=== PATIENT | male | born 1985 | race Caucasian/White ===

== ENCOUNTER 2017-10-24 19:27 | Emergency (ER) | payer OTHER ==
[~2017-10-24] VITALS: Ht 172.7 cm; Wt 88.9 kg
--- NOTE | 2017-10-24 19:37 | ED.ADGEN ---
Adult General Chief Complaint Chief Complaint " ... I ve had a fever...".. it been somewhat constant the past week or so.. I seen my doctor .. but did not see anything that was obviously causing the fevers..." HPI HPI Patient is a 32 year old male who presents with above hx and complaints of fever. Pt. Denies any history of immunosuppression, drug use or specific ill contacts or travel. Patient states fevers have been relatively constant and seemed to peak at night. No specific history of cough or productive sputum. Patient does have a family history of Hodgkin's lymphoma and lymphatic cancer. Patient normally follows with Dr. Child Review of Systems Review of Systems Constitutional: Hx of fevers Eyes: Denies change in visual acuity, redness, or eye pain [] HENT: Denies nasal congestion or sore throat [] Respiratory: Denies cough or shortness of breath [] Cardiovascular: No additional information not addressed in HPI [] GI: Denies abdominal pain, nausea, vomiting, bloody stools or diarrhea [] : Denies dysuria or hematuria [] Musculoskeletal: Denies back pain or joint pain [] Integument: Denies rash or skin lesions [] Neurologic: Denies headache, focal weakness or sensory changes [] Endocrine: Denies polyuria or polydipsia [] All other systems were reviewed and found to be within normal limits, except as documented in this note. Family History Family History Lymphatic Cancer, Hodgkin's lymphoma Current Medications Current Medications Current Medications Medications (Trade) Dose Ordered Sig/Sneha Start Time Stop Time Status Last Admin Dose Admin Acetaminophen (Tylenol) 1,000 mg 1X ONCE 10/24/17 21:15 10/24/17 21:36 DC 10/24/17 21:35 1,000 MG Info (Do NOT chart on this entry -- for MONITORING) 1 each PRN DAILY PRN 10/24/17 21:45 10/24/17 23:27 DC Iohexol (Omnipaque 300 Mg/ml) 75 ml 1X ONCE 10/24/17 21:45 10/24/17 21:46 DC 10/24/17 21:49 75 ML Lactated Ringer's 1,000 ml @ 1,000 mls/hr Q1H 10/24/17 19:44 10/24/17 20:43 DC 10/24/17 20:06 1,000 MLS/HR Allergies Allergies Allergies Coded Allergies Type Severity Reaction Last Updated Verified budesonide Allergy Unknown 10/24/17 Yes Physical Exam Physical Exam Constitutional: Well developed, well nourished, mild distress, non-toxic appearance. [] HENT: Normocephalic, atraumatic, bilateral external ears normal, oropharynx moist, no oral exudates, nose normal. []No dental abscesses appreciated Eyes: PERRLA, EOMI, conjunctiva normal, no discharge. [] Glasses Neck: Normal range of motion, no tenderness, supple, no stridor. [] Cardiovascular: Tachycardia Heart rate regular rhythm, no murmur [] Lungs & Thorax: Bilateral breath sounds clear to auscultation []few scattered wheezes. Abdomen: Bowel sounds normal, soft, no tenderness, no masses, no pulsatile masses. [] Skin: Warm, dry, no erythema, no rash. [] No adenopathy appreciated. Back: No tenderness, no CVA tenderness. [] Extremities: No tenderness, no cyanosis, no clubbing, ROM intact, no edema. [] Neurologic: Alert and oriented X 3, normal motor function, normal sensory function, no focal deficits noted. [] Psychologic: Affect anxious, judgement normal, mood normal. [] Current Patient Data Vital Signs Vital Signs Date Time Temp Pulse Resp B/P (MAP) Pulse Ox O2 Delivery O2 Flow Rate FiO2 10/24/17 23:10 98.8 99 20 128/80 (96) 95 Room Air Lab Results Laboratory Tests Test 10/24/17 19:55 10/24/17 20:16 White Blood Count 6.1 x10^3/uL (4.0-11.0) Red Blood Count 5.44 x10^6/uL (4.30-5.70) Hemoglobin 17.4 g/dL (13.0-17.5) Hematocrit 49.3 % (39.0-53.0) Mean Corpuscular Volume 91 fL (79-100) Mean Corpuscular Hemoglobin 32 pg (25-35) Mean Corpuscular Hemoglobin Concent 35 g/dL (31-37) Red Cell Distribution Width 12.6 % (11.5-14.5) Platelet Count 257 x10^3/uL (140-400) Neutrophils (%) (Auto) 37 % (31-73) Lymphocytes (%) (Auto) 52 % (24-48) H Monocytes (%) (Auto) 9 % (0-9) Eosinophils (%) (Auto) 1 % (0-3) Basophils (%) (Auto) 1 % (0-3) Neutrophils # (Auto) 2.3 x10^3uL (1.8-7.7) Lymphocytes # (Auto) 3.2 x10^3/uL (1.0-4.8) Monocytes # (Auto) 0.5 x10^3/uL (0.0-1.1) Eosinophils # (Auto) 0.1 x10^3/uL (0.0-0.7) Basophils # (Auto) 0.1 x10^3/uL (0.0-0.2) Prothrombin Time 10.0 SEC (9.4-11.4) Prothrombin Time INR 1.0 (0.9-1.1) PTT 29 SEC (23-33) Sodium Level 138 mmol/L (136-145) Potassium Level 3.4 mmol/L (3.5-5.1) L Chloride Level 102 mmol/L (98-107) Carbon Dioxide Level 28 mmol/L (21-32) Anion Gap 8 (6-14) Blood Urea Nitrogen 11 mg/dL (8-26) Creatinine 1.1 mg/dL (0.7-1.3) Estimated GFR (Cockcroft-Gault) 77.1 Glucose Level 117 mg/dL (70-99) H Calcium Level 8.7 mg/dL (8.5-10.1) Magnesium Level 1.8 mg/dL (1.8-2.4) Total Bilirubin 0.4 mg/dL (0.2-1.0) Direct Bilirubin 0.1 mg/dL (0.0-0.2) Aspartate Amino Transferase (AST) 54 U/L (15-37) H Alanine Aminotransferase (ALT) 100 U/L (16-63) H Alkaline Phosphatase 86 U/L (46-116) Creatine Kinase 91 U/L (39-308) Troponin I Quantitative < 0.017 ng/mL (0-0.055) Total Protein 7.6 g/dL (6.4-8.2) Albumin 3.3 g/dL (3.4-5.0) L Influenza Type A (Rapid) Negative (NEGATIVE) Influenza Type B (Rapid) Negative (NEGATIVE) Group A Streptococcus Rapid Negative (NEGATIVE) Urine Collection Type Unknown Urine Color Yellow Urine Clarity Clear Urine pH 7.0 Urine Specific [place] 1.020 Urine Protein Trace (NEG-TRACE) Urine Glucose (UA) Neg mg/dL (NEG) Urine Ketones (Stick) Neg mg/dL (NEG) Urine Blood Neg (NEG) Urine Nitrite Neg (NEG) Urine Bilirubin Neg (NEG) Urine Urobilinogen Dipstick 0.2 mg/dL (0.2 mg/dL) Urine Leukocyte Esterase Neg (NEG) Urine RBC 3-5 /HPF (0-2) Urine WBC Occ /HPF (0-4) Urine Squamous Epithelial Cells Few /LPF Urine Bacteria 0 /HPF (0-FEW) Urine Mucus Slight /LPF Urine Opiates Screen Neg (NEG) Urine Methadone Screen Neg (NEG) Urine Barbiturates Neg (NEG) Urine Phencyclidine Screen Neg (NEG) Urine Amphetamine/Methamphetamine Neg (NEG) Urine Benzodiazepines Screen Neg (NEG) Urine Cocaine Screen Neg (NEG) Urine Cannabinoids Screen Neg (NEG) Urine Ethyl Alcohol Neg (NEG) EKG EKG [] Radiology/Procedures Radiology/Procedures My interpretation of chest x-ray shows no acute cardiopulmonary findings. CT of chest shows no obvious pulmonary embolism. No marked pathology of abdomen.[] See formal report when available. Course & Med Decision Making Course & Med Decision Making Pertinent Labs and Imaging studies reviewed. (See chart for details). Follow- up labs and radiographic results with primary. Consider further evaluation of lymphocytosis. Patient lymphocytosis may be of a viral infection. Must follow up. Push fluids, take tylenol and ibuprofen for discomfort and fever. Push fluids. Push fruit juices. [] Final Impression Final Impression 1. Fever[]s 2. lymphocytosis 3. Elevated ALT and AST 4. Mild hypokalemia 5. Suspect viral syndrome Problems: Dragon Disclaimer Dragon Disclaimer This electronic medical record was generated, in whole or in part, using a voice recognition dictation system. EMRE VILLALTA MD Oct 24, 2017 19:37
[2017-10-24] MEDS ORDERED: IV RINGERS SOLUTION,LACTATED 1,000 ML IV SCH (19:44)
[2017-10-24 20:27] LABS: BASO # 0.1 x10^3/uL (0.0-0.2); BASO % 1 % (0-3); EOS # 0.1 x10^3/uL (0.0-0.7); EOS % 1 % (0-3); HEMATOCRIT 49.3 % (39.0-53.0); HEMOGLOBIN 17.4 g/dL (13.0-17.5); LYMPH # 3.2 x10^3/uL (1.0-4.8); LYMPH % 52 % (24-48); MEAN CORPUSCULAR HEMOGLOBIN 32 pg (25-35); MEAN CORPUSCULAR HGB CONC 35 g/dL (31-37); MEAN CORPUSCULAR VOLUME 91 fL (79-100); MONO # 0.5 x10^3/uL (0.0-1.1); MONO % 9 % (0-9); NEUT # 2.3 x10^3uL (1.8-7.7); NEUT % 37 % (31-73); PLATELET COUNT 257 x10^3/uL (140-400); RED BLOOD COUNT 5.44 x10^6/uL (4.30-5.70); RED CELL DISTRIBUTION WIDTH 12.6 % (11.5-14.5); WHITE BLOOD COUNT 6.1 x10^3/uL (4.0-11.0)
[2017-10-24 20:40] LABS: ALBUMIN 3.3 g/dL (3.4-5.0); CALCIUM 8.7 mg/dL (8.5-10.1); CREATININE 1.1 mg/dL (0.7-1.3); DIRECT BILIRUBIN 0.1 mg/dL (0.0-0.2); GFR 77.1; MAGNESIUM 1.8 mg/dL (1.8-2.4); POTASSIUM 3.4 mmol/L (3.5-5.1); TOTAL BILIRUBIN 0.4 mg/dL (0.2-1.0); TOTAL PROTEIN 7.6 g/dL (6.4-8.2)
[2017-10-24 20:47] LABS: INFLUENZA A PATIENT NEGATIVE (NEGATIVE); INFLUENZA B PATIENT NEGATIVE (NEGATIVE)
[2017-10-24 21:00] LABS: AMPHETAMINE/METHAMPHETAMINE NEG (NEG); BARBITURATES NEG (NEG); BENZODIAZEPINES NEG (NEG); CANNABINOIDS NEG (NEG); COCAINE NEG (NEG); METHADONE NEG (NEG); OPIATES NEG (NEG); PHENCYCLIDINE NEG (NEG)
[2017-10-24 21:01] LABS: BACTERIA,URINE 0 /HPF (0-FEW); BILIRUBIN,URINE NEG (NEG); CLARITY,URINE CLEAR; COLOR,URINE YELLOW; GLUCOSE,URINE NEG (NEG); NITRITE,URINE NEG (NEG); SQUAMOUS EPITHELIAL CELL,UR FEW /LPF; UROBILINOGEN,URINE 0.2 mg/dL (0.2 mg/dL); WBC,URINE OCC /HPF (0-4)
[2017-10-24] MEDS ORDERED: ACETAMINOPHEN 500 MG TABLET PO ONE (21:15)
[2017-10-24] MEDS ORDERED: CONTRAST GIVEN MC PRN (21:45)
[2017-10-24] MEDS ORDERED: IOHEXOL 300 MG/ML 75 ML VIAL. IV ONE (21:45)
--- NOTE | 2017-10-24 22:53 | RAD ---
CT arteriogram of the chest and abdomen. HISTORY: Fever, dyspnea, history of asthma CT arteriogram of the chest was done using 75 mL Omnipaque 300 contrast. Coronal MIP images were reconstructed. Three-dimensional reconstruction was made of the abdominal and thoracic aorta. Thyroid is homogeneous. There is no mediastinal adenopathy. There is no pleural effusion. There is mild dependent atelectasis in the lungs without other infiltrates. This study is negative for evidence of a pulmonary embolus. Origins of the great vessels are widely patent. Thoracic aorta is normal without an aneurysm or dissection. IMPRESSION: 1. Negative CT arteriogram of the chest. 2. Normal thoracic aorta without aneurysm or dissection. 3. No pulmonary embolus. End impression CT arteriogram of the abdomen. CT arteriogram the abdomen was performed. Coronal MIP images were reconstructed. Three-dimensional reconstructions were made in the aorta. Liver was normal in appearance. The gallbladder is contracted. Spleen is upper normal in size. Adrenal glands and pancreas are unremarkable unremarkable. There is no mass or hydronephrosis in the kidneys. There is no free air or bowel obstruction or ascites. Bowel pattern is normal. The celiac artery is somewhat prominent but patent without stenosis. Superior mesenteric artery and renal arteries are patent. There is no abdominal aortic aneurysm or dissection. Inferior mesenteric artery is patent. IMPRESSION: 1. No abdominal aortic aneurysm or dissection. 2. No acute finding noted in the abdomen. 3. Gallbladder is contracted but without calcified gallstones. PQRS Compliance Statement: One or more of the following individualized dose reduction techniques were utilized for this examination: 1. Automated exposure control 2. Adjustment of the mA and/or kV according to patient size 3. Use of iterative reconstruction technique Electronically signed by: Cabrera Loja MD (10/24/2017 10:50 PM) [id number]
[2017-10-24 23:10] VITALS: BP 128/80
--- NOTE | 2017-10-25 09:30 | RAD ---
PA and lateral chest x-rays History: Fever and dizziness. Findings: Heart size normal. Mediastinal and unremarkable. No pneumothorax, pulmonary opacities or pleural effusions. The bones are unremarkable. Impression: No acute process.
== END 2017-10-24 23:22 | disposition home or self-care (01) ==
LOC: ER 19:27
DX: R50.9 Fever, unspecified (principal); D72.820 Lymphocytosis (symptomatic); E87.6 Hypokalemia; R74.8 Abnormal levels of other serum enzymes; Z88.8 Allergy status to other drugs, medicaments and biological substances
CPT/HCPCS: 36415; 71046; 71275; 74175; 80048; 80076; 80307; 81001; 82550; 83735; 84443; 84484; 85025; 85610; 85730; 87040; 87070; 87804; 87880; 96360; 99285; J7120; Q9967; G0479